=== PATIENT | female | born 2000 | race African-American/Black ===

== ENCOUNTER 2023-03-02 19:42 | Emergency (ER) | payer MEDICAID ==
[~2023-03-02] VITALS: Ht 167.6 cm; Wt 52.1 kg
[2023-03-02 20:17] VITALS: O2SAT 99
[2023-03-02 20:48] LABS: BASOPHILS % 0.2 % (0.0-2.0); HEMATOCRIT. 39.1 % (36.0-48.0); HEMOGLOBIN. 13.5 g/dL (12.0-16.0); LYMPHOCYTES % 32.5 % (20.0-50.0); MEAN CORPUSCULAR HEMOGLOBIN 32.4 pg (28.0-32.0); MONOCYTES % 13.2 % (2.0-8.0); NEUTROPHILS % 54.1 % (40.0-76.0); PLATELET 159 x1000/uL (130-400); RED BLOOD CELL COUNT 4.17 mill/uL (4.2-5.4); RED CELL DISTRIBUTION WIDTH 12.7 % (11.6-14.6)
[2023-03-02 20:49] LABS: CHLORIDE 108 mEq/L (98-107)
[2023-03-02 20:52] LABS: HCG SCREEN NEGATIVE
[2023-03-02 21:00] LABS: INR 1.1; PROTHROMBIN TIME 11.8 sec (9.6-11.0)
[2023-03-02] MEDS ORDERED: IBUPROFEN 400MG TABLET PO ONE (22:00)
[2023-03-02] MEDS ORDERED: ACETAMINOPHEN 325MG TABLET PO ONE (22:00)
[2023-03-02 22:10] VITALS: BP 125/89
[2023-03-02 22:37] LABS: CLARITY URINE CLEAR (CLEAR); COLOR URINE YELLOW (YELLOW); KETONES URINE TRACE (NEGATIVE); LEUKOCYTE ESTERASE URINE NEGATIVE (NEGATIVE); NITRITE URINE NEGATIVE (NEGATIVE); OCCULT BLOOD URINE 1+ (NEGATIVE); PH URINE 5.5 (4.5-8.0); PROTEIN URINE TRACE (NEGATIVE); SPECIFIC GRAVITY URINE 1.029 (1.005-1.030); UROBILINOGEN URINE 0.2 E.U./dL (0.2-1.0)
[2023-03-02] MEDS ORDERED: TOPUD MT (22:52)
[2023-03-02 23:29] VITALS: PULSE 89; RESP 18; TEMP 100.7
== END 2023-03-02 23:30 | disposition home or self-care (01) ==
LOC: ER 19:42
DX: R05.9 Cough, unspecified (principal); R50.9 Fever, unspecified; R09.81 Nasal congestion; Z87.01 Personal history of pneumonia (recurrent)
CPT/HCPCS: 36415; 71045; 80053; 81003; 81025; 84484; 84703; 85025; 93005; 99285